=== PATIENT | male | born 1985 ===

== ENCOUNTER 2025-06-14 05:58 | Day surgery (SDC) | payer OTHER ==
[2025-06-14] MEDS: Ringers Lactate 1,000 ML IV ONE ×2 (06:35→09:00)
[2025-06-14] MEDS ORDERED: NA CHLORIDE 0.9% 500 ML ONE (07:17)
[2025-06-14] MEDS ORDERED: NA CHLORIDE 0.9% 250 ML ONE (07:17)
[2025-06-14] MEDS ORDERED: KETOROLAC 30 MG/ML INJ ONE (07:21)
[2025-06-14] MEDS ORDERED: ONDANSETRON 4 MG/2 ML VIAL ONE (07:21)
[2025-06-14] MEDS ORDERED: MIDAZOLAM HCL 2 MG/2 ML INJ ONE (07:22)
[2025-06-14] MEDS ORDERED: LIDOCAINE 2% MPF 5 ML VIAL ONE (07:22)
[2025-06-14] MEDS ORDERED: ROCURONIUM 50 MG/5 ML VIAL IV ONE (07:22)
[2025-06-14] MEDS ORDERED: FENTANYL CITR 100 MCG/2 ML ONE (07:22)
[2025-06-14] MEDS: CEFAZOLIN SODIUM 1 GM/VIAL ONE (07:45)
[2025-06-14] MEDS: OXYMETAZOLINE HCL 0.05% 30ML NAS ONE (08:02)
[2025-06-14] MEDS: LIDOCAINE HCL/EPINEPHRINE 20 ML MDV ONE (08:02)
[2025-06-14] MEDS ORDERED: NS 0.9% VIAL 10 ML ONE (08:13)
[2025-06-14] MEDS ORDERED: NEOSTIGMINE 1 MG/ML -10 ML VIAL ONE (08:30)
[2025-06-14] MEDS ORDERED: GLYCOPYRROLATE 0.2 MG/ML SYR ONE (08:30)
[2025-06-14] MEDS: BACITRACIN OINTMENT 14 GM TUBE TOP ONE (09:00)
[2025-06-14] MEDS: HYDROMORPHONE HCL 1 MG/ML INJ ONE (09:20)
[2025-06-14 09:25] VITALS: O2SAT 100
[2025-06-14 10:43] VITALS: BP 134/83; TEMP 97
--- NOTE | 2025-06-15 12:47 | OP ---
Date of Procedure: 06/14/2025 Surgeon: ARPAN YEN Preoperative Diagnoses: 1. Bilateral nasal obstruction secondary to inferior turbinate hypertrophy and internal nasal valve c ollapse. 2. Bilateral nasal septal swell bodies. Postoperative Diagnoses: 1. Bilateral nasal obstruction secondary to inferior turbinate hypertrophy and internal nasal valve c ollapse. 2. Bilateral nasal septal swell bodies. Procedures: 1. Bilateral nasal endoscopy. 2. Bilateral inferior turbinate submucosal Coblation. 3. Bilateral VivAer nasal valve remodeling. 4. Bilateral reduction of nasal septal swell bodies. Anesthesia: General endotracheal anesthesia was administered. I also infiltrated approximately 10 m L of 1% lidocaine with 1:100,000 epinephrine at the area of the internal nasal valves and inferior tu rbinate mucosa. Estimated Blood Loss: Less than 2 mL. Specimens: None. Findings: Bilateral nasal obstruction with inferior turbinate hypertrophy 3/4, moderate to severe bi lateral nasal valve collapse, and moderate bilateral nasal septal mucosal swelling. Complications: None. Disposition: Stable. The patient tolerated the procedure well. Indications For Procedure: The patient is a pleasant 40-year-old male, who presented to my outpatien t clinic with chronic bilateral nasal obstruction, who had great difficulty using his CPAP mask. Exa mination revealed moderate to severe bilateral nasal obstruction secondary to internal nasal valve co llapse, nasal septal swell bodies, and inferior turbinate hypertrophy. These were indications to festus ng the patient to operative suite for the above-mentioned procedure. He understood, all questions we re answered. Risks versus benefits, complications were explained in detail and a consent form was si gned, which was placed in the chart. Description Of Procedure: The patient was transferred from the preoperative holding area to the oper ative suite by Department of Anesthesia, placed on the operating table supine, sedated and intubated in normal fashion. Table was rotated 180 degrees. I infiltrated bilateral nasal valves, inferior tu rbinate mucosa, and septal mucosa with 10 mL of 1% lidocaine with 1:100,000 epinephrine. Afrin-soake d nasal pledgets were used for vasoconstriction and decongestion. The patient was then prepped and d raped. The nasal pledgets were removed and a 0-degree rigid nasal endoscope was introduced into bilateral na sean cavities. I made an incision with the Coblation wand into the right inferior turbinate mucosa at the anterior face and then I advanced the 1 posteriorly to the posterior inferior turbinate and then I performed submucosal Coblation of the right inferior turbinate. I did ablate several areas of the mucosa with the ablation wand on a setting of 7 and coagulation of 3. Hemostasis was achieved with suction Bovie at a setting of 20 for coagulation. Next, I made my incision to the left inferior turb inate mucosa with the Coblation wand and advanced the 1 posteriorly in a submucous pocket and then I performed left inferior turbinate submucosal Coblation with wand. I then ablated several areas of th e mucosa utilizing the wand on a setting of 7 for ablation and 3 for coagulation. Hemostasis was ach ieved with suction Bovie. Next, my attention was placed to nasal valve remodeling. I inserted the VivAer handpiece at the caud al border of the left upper lateral cartilage. The low power radiofrequency treatment was applied at 4 adjacent non-overlapping locations on the left side. Next, I then used the VivAer handpiece and p laced it at the caudal border of the right upper lateral cartilage. A low power radiofrequency treat ment was applied at 4 adjacent non-overlapping locations on the right side. Next, I used the VivAer handpiece and applied the handpiece at the area of the right mucosal septal e nirali and the treatment was applied at 3 adjacent non-overlapping locations on the right septal mucosa . I then placed the VivAer handpiece at the area of the left septal mucosal edema and the radiofrequ ency treatment was applied in 3 adjacent non-overlapping locations on the left side. I then instille d approximately 5 mL of bacitracin ointment into bilateral nasal cavities and a mustache dressing was placed. The patient tolerated the procedure well. He was transferred back to Department of Anesthe kirsten in stable condition, subsequently awakened, extubated, and transferred to postoperative care unit and discharged home on antibiotic and analgesic medication. He will follow up in 2 to 4 weeks or so randi if needed. [email or web address] Voice ID: [id number] Report ID: [id number]
== END 2025-06-14 10:32 | disposition home or self-care (01) ==
LOC: OR 05:58
PROVIDERS: ATTEND Otolaryngology Facial Plastic Surgery
PROC: 09QK8ZZ Repair Nasal Mucosa and Soft Tissue, Via Natural or Artificial Opening Endoscopic (ICD-10-PCS; 2025-06-14)
PROC: 09T Ear, Nose, Sinus, Resection (ICD-10-PCS; 2025-06-14)
PROC: 095L8ZZ Destruction of Nasal Turbinate, Via Natural or Artificial Opening Endoscopic (ICD-10-PCS; principal; 2025-06-14 07:30)
DX: J34.829 Nasal valve collapse, unspecified (principal); J34.3 Hypertrophy of nasal turbinates; J34.89 Other specified disorders of nose and nasal sinuses
CPT/HCPCS: 30802; 30469; 30117; A4216; J2704; J2710; J2003; J2250; J3010; J1100; J1171; J2405; J7120 ×2; J7050; J7040; J0690